=== PATIENT | female | born 1970 | race Caucasian/White ===

== ENCOUNTER 2016-08-10 22:06 | Emergency (ER) | payer BC ==
[~2016-08-10] VITALS: Ht 170.2 cm; Wt 166.3 kg
[~2016-08-10 22:06] MED LIST: LISINOPRIL10 MG PO; METFORMIN HCL500 M4 PO; METFORMIN HCL500 MG PO; MOTRIN600 MG PO; NAPROSYN500 MG PO; NASONEX17 GM BOTH NARES; PRILOSEC20 MG PO; SERTRALINE HCL50 MG PO; ULTRAM50 MG PO; VICTOZA0.6 MG/0.1 SC; ZYRTEC10 M2 PO
[2016-08-10] MEDS ORDERED: ZANTAC150 MG PO (23:16)
[2016-08-10] MEDS ORDERED: MOUTH SORE15 ML MM (23:16)
[2016-08-10 23:26] LABS: POINT-OF-CARE METER ID UU14100415
[2016-08-10 23:32] VITALS: BP 164/79
== END 2016-08-10 23:59 | disposition home or self-care (01) ==
LOC: EME 22:06
PROVIDERS: Physician Assistant
DX: K12.0 Recurrent oral aphthae (principal); B34.9 Viral infection, unspecified; E11.9 Type 2 diabetes mellitus without complications; Z79.84 Long term (current) use of oral hypoglycemic drugs; I10 Essential (primary) hypertension; K21.9 Gastro-esophageal reflux disease without esophagitis; F32.9 Major depressive disorder, single episode, unspecified; Z86.010 Personal history of colon polyps; Z87.442 Personal history of urinary calculi; Z88.0 Allergy status to penicillin
CPT/HCPCS: 82947; 82948; 99281; 99283